=== PATIENT | male | born 1960 | race Caucasian/White ===

== ENCOUNTER 2016-11-29 06:37 | Observation (INO) | payer BC, OTHER ==
[2016-11-29] MEDS ORDERED: ASPIRIN CHEW 81 MG TABLET ONE (06:57)
[2016-11-29] MEDS ORDERED: ASPIRIN CHEW 81 MG TABLET PO STA (06:57)
[2016-11-29] MEDS ORDERED: MORPHINE 2 MG/ML SYRINGE IVP STA (07:15)
[2016-11-29] MEDS ORDERED: ONDANSETRON 4 MG/2 ML VIAL IVP STA (07:15)
[2016-11-29] MEDS ORDERED: ONDANSETRON 4 MG/2 ML VIAL ONE (07:16)
[2016-11-29] MEDS ORDERED: MORPHINE 2 MG/ML SYRINGE ONE (07:17)
[2016-11-29] MEDS ORDERED: ACETAMINOPHEN 325 MG TABLET PO STA (09:11)
[2016-11-29] MEDS ORDERED: oxyCODONE 5 MG TABLET PO STA (09:11)
[2016-11-29] MEDS ORDERED: SODIUM CHLORIDE FLUSH 0.9% 10 ML SYRINGE IVP PRN (09:28)
[2016-11-29] MEDS ORDERED: NITROGLYCERIN SL 0.4 MG TABLET SL PRN (09:33)
[2016-11-29] MEDS ORDERED: ACETAMINOPHEN 325 MG TABLET PO ONE (09:45)
[2016-11-29] MEDS ORDERED: oxyCODONE 5 MG TABLET ONE (09:45)
[2016-11-29] MEDS ORDERED: IOPAMIDOL-300 100 ML VIAL IVP ONE (09:51)
[2016-11-29] MEDS ORDERED: SODIUM CHLORIDE FLUSH 0.9% 10 ML SYRINGE IVP SCH (14:00)
[2016-11-29] MEDS ORDERED: ATORVASTATIN 40 MG TABLET PO SCH (21:00)
[2016-11-30] MEDS ORDERED: POLYETHYLENE GLYCOL 3350 17 GM PACKET PO SCH (09:00)
== END 2016-11-29 17:15 | disposition home or self-care (01) ==
DX: R07.89 Other chest pain (principal); R51 Headache; I10 Essential (primary) hypertension; E11.9 Type 2 diabetes mellitus without complications; E78.5 Hyperlipidemia, unspecified; R06.83 Snoring; E66.9 Obesity, unspecified; Z87.891 Personal history of nicotine dependence; Z82.49 Family history of ischemic heart disease and other diseases of the circulatory system; Z68.38 Body mass index [BMI] 38.0-38.9, adult
CPT/HCPCS: 36415; 70450; 70496; 70498; 71010; 71020; 80053; 80061; 83036; 83690; 84484; 85025; 93005; 93010; 96374; 96375; 99218; 99284; A9270; Q9967

== ENCOUNTER 2021-05-20 08:00 | Outpatient (CLI) | payer BC, OTHER ==
[2021-05-20 17:52] LABS: BASOPHILS # (AUTO) 0.1 10^3/uL (0.0-0.1); BASOPHILS % (AUTO) 0.7 %; EOSINOPHILS # (AUTO) 0.5 10^3/uL (0.0-0.7); EOSINOPHILS % (AUTO) 4.7 %; HCT - HEMATOCRIT 45.5 % (42.0-52.0); HGB - HEMOGLOBIN 14.6 g/dL (14.0-18.0); LYMPHOCYTES # (AUTO) 2.6 10^3/uL (1.5-3.5); LYMPHOCYTES % (AUTO) 26.9 %; MEAN CORPUSCULAR HEMOGLOBIN 29.7 pg (27.0-31.0); MEAN CORPUSCULAR HGB CONC 32.1 g/dL (32.0-36.0); MEAN CORPUSCULAR VOLUME 92.7 fL (80.0-94.0); MEAN PLATELET VOLUME 9.8 fL (7.4-11.4); MONOCYTES # (AUTO) 0.7 10^3/uL (0.0-1.0); MONOCYTES % (AUTO) 7.2 %; NEUTROPHILS # (AUTO) 5.6 10^3/uL (1.5-6.6); NEUTROPHILS % (AUTO) 58.9 %; PLT - PLATELET COUNT 213 10^3/uL (130-450); RED BLOOD COUNT 4.91 10^6/uL (4.70-6.10); RED CELL DISTRIBUTION WIDTH 13.3 % (12.0-15.0); WHITE BLOOD COUNT 9.6 x10^3/uL (4.8-10.8)
[2021-05-20 18:23] LABS: ALBUMIN 4.1 g/dL (3.2-5.5); ALBUMIN/GLOBULIN RATIO 1.4 (1.0-2.2); ALKALINE PHOSPHATASE 42 IU/L (42-121); ALT ALANINE AMINOTRANSFERASE 41 IU/L (10-60); AST ASPARTATE AMINOTRANSFERASE 23 IU/L (10-42); BILIRUBIN,TOTAL 0.5 mg/dL (0.2-1.0); BUN - BLOOD UREA NITROGEN 24 mg/dL (6-20); CALCIUM 9.6 mg/dL (8.5-10.3); CARBON DIOXIDE - CO2 26 mmol/L (21-32); CHLORIDE 105 mmol/L (101-111); CHOL/HDL RATIO 5.4 (<5.0); CHOLESTEROL 189 mg/dL; GFR - MDRD 75 (>89); GLUCOSE 187 mg/dL (70-100); HDL CHOLESTEROL 35 mg/dL; LDL CHOLESTEROL,CALCULATED 100 mg/dL; LDL/HDL RATIO 2.9 (<3.6); POTASSIUM 4.6 mmol/L (3.5-5.0); SODIUM 139 mmol/L (135-145); TOTAL PROTEIN 7.1 g/dL (6.7-8.2); TRIGLYCERIDES 271 mg/dL; VLDL CHOLESTEROL 54 mg/dL
[2021-05-20 18:31] LABS: CREATININE,URINE 80.5 mg/dL; MICROALBUM/CREATININE RATIO,UR 3.7 ug/mg (<30.0); MICROALBUMIN,URINE 0.3 mg/dL (0-300.0)
[2021-05-20 18:34] LABS: THYROID STIMULATING HORMONE 1.07 uIU/mL (0.34-5.60)
[2021-05-20 21:17] LABS: ESTIMATED AVERAGE GLUCOSE 186 mg/dL (70-100); HEMOGLOBIN A1c% 8.1 % (4.27-6.07)
== END 2021-05-20 23:59 | disposition home or self-care (01) ==
LOC: LAB.WCP 08:00
PROVIDERS: ATTEND Family Medicine
DX: E11.9 Type 2 diabetes mellitus without complications (principal)
CPT/HCPCS: 36415; 80053; 80061; 82043; 82570; 83036; 83721; 84443; 85025

== ENCOUNTER 2021-07-03 15:05 | Outpatient (CLI) | payer OTHER ==
--- NOTE | 2021-07-03 16:52 | XRAY Report ---
PROCEDURE: Hip w/Pelvis 2-3V RT INDICATIONS: LUMBAR RADICULOPATHY, RIGHT TECHNIQUE: AP pelvis with lateral view(s) of the bilateral hip(s). COMPARISON: None. FINDINGS: Bones: No fractures or dislocations. Pelvic ring appears intact. No suspicious bony lesions. Mild symmetric hip and sacroiliac joint degeneration bilaterally. Degenerative changes noted in the lower lumbar spine. Soft tissues: The visualized bowel gas pattern is normal. No suspicious soft tissue calcifications. 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 Reviewed by: Chelsie Alves MD on 07/03/2021 4:50 PM PDT Approved by: Chelsie Alves MD on 07/03/2021 4:50 PM PDT Station ID: [id number]
--- NOTE | 2021-07-03 17:03 | XRAY Report ---
PROCEDURE: Lumbar Spine 2 View INDICATIONS: LUMBAR RADICULOPATHY, RIGHT TECHNIQUE: 3 views of the lumbar spine were acquired. COMPARISON: Prior lumbar spine series dated 03/12/2015 FINDINGS: Bones: 5 [id number] vertebrae are present. Trace levocurvature centered at the L4 level. Multil evel disc degeneration, most notably and severe at the L2-L3 and L5-S1 levels. Mild L4-L5 and L5-S1 f acet joint arthropathy.. No vertebral body compression fractures. No suspicious bony lesions. Soft tissues: Overlying bowel gas pattern is normal. No suspicious soft tissue calcifications. IMPRESSION: Multilevel spondylosis. Reviewed by: ODETTE Patel on 07/03/2021 5:01 PM PDT Approved by: Velasquez Mcdowell on 07/03/2021 5:01 PM PDT Station ID: [id number]
== END 2021-07-03 15:06 | disposition home or self-care (01) ==
LOC: DI.N 15:05
PROVIDERS: ATTEND Nurse Practitioner
DX: M47.26 Other spondylosis with radiculopathy, lumbar region (principal); M47.28 Other spondylosis with radiculopathy, sacral and sacrococcygeal region; M16.0 Bilateral primary osteoarthritis of hip

== ENCOUNTER 2022-10-21 07:23 | Outpatient (CLI) | payer OTHER ==
[2022-10-21 12:52] LABS: ESTIMATED AVERAGE GLUCOSE 169 mg/dL (70-100); HEMOGLOBIN A1c% 7.5 % (4.27-6.07)
== END 2022-10-21 07:24 | disposition home or self-care (01) ==
LOC: LAB.N 07:23
PROVIDERS: ATTEND Nurse Practitioner
DX: E11.9 Type 2 diabetes mellitus without complications (principal); Z12.5 Encounter for screening for malignant neoplasm of prostate
CPT/HCPCS: 36415; 83036; 84153

== ENCOUNTER 2022-11-12 18:00 | Outpatient (CLI) | payer OTHER ==
[2022-11-12 21:25] LABS: CALCIUM 10.3 mg/dL (8.5-10.3); CREATININE 0.8 mg/dL (0.6-1.2); POTASSIUM 4.2 mmol/L (3.5-5.0)
== END 2022-11-12 23:59 | disposition home or self-care (01) ==
LOC: LAB.N 18:00
PROVIDERS: ATTEND Physician Assistant Medical
DX: U07.1 COVID-19 (principal)
CPT/HCPCS: 36415; 80048

== ENCOUNTER 2022-12-13 15:07 | Outpatient (CLI) | payer OTHER ==
[2022-12-13 15:26] VITALS: BP 140/88
== END 2022-12-13 15:08 | disposition home or self-care (01) ==
LOC: MAC.MOP 15:07
PROVIDERS: ATTEND Nurse Practitioner
DX: R00.2 Palpitations (principal)
CPT/HCPCS: 93246

== ENCOUNTER 2022-12-21 07:45 | Emergency (ER) | payer OTHER ==
[2022-12-21] MEDS ORDERED: LIDOCAINE 1%-EPI 1:100000 10 ML MDV SUBQ STA (07:59)
--- NOTE | 2022-12-21 08:04 | ED Physician Documentation ---
History of Present Illness - Stated complaint Stated Complaint: GLF/HEAD LAC - Chief complaint Chief Complaint: Laceration - Additonal information Additional information: Patient 62-year-old male presenting to the emergency department with chief complaint ground-level fall and scalp laceration. This morning was sitting at on a roller chair and it slipped out from underneath him striking the back of his head. He denies loss of consciousness but does report takes daily aspirin. Endorses for posterior scalp laceration and states that he applied pressure immediately upon injury with hemostasis acquired at home. Unknown last tetanus. Currently states he has a significant headache but denies any neck pain, blurred vision, double vision, back, chest or extremity pain. Review of Systems Constitutional: denies: Fever Eyes: denies: Loss of vision Ears: denies: Loss of hearing Nose: denies: Rhinorrhea / runny nose Throat: denies: Dental pain / toothache Cardiac: denies: Chest pain / pressure Respiratory: denies: Dyspnea GI: denies: Abdominal Pain : denies: Dysuria PD PAST MEDICAL HISTORY - Past Medical History Cardiovascular: Hypertension, High cholesterol - Past Surgical History Past Surgical History: Yes HEENT: Tonsil/Adenoidectomy - Present Medications Home Medications: Ambulatory Orders Medication Instructions Recorded Confirmed Aspirin 81 mg PO DAILY 11/29/16 12/21/22 Blood Sugar Diagnostic [Glucometer 1 each MC DAILY #60 strip 11/29/16 12/21/22 Strips] Blood-Glucose Meter [Glucometer] 1 each MC DAILY #1 each 11/29/16 12/21/22 lisinopriL [Lisinopril] 10 mg PO DAILY 11/29/16 12/21/22 Metformin HCl [Metformin ER 1,500 mg PO DAILY 12/21/22 12/21/22 Gastric] Rosuvastatin Calcium [Crestor] 10 mg PO HS 12/21/22 12/21/22 - Allergies Allergies/Adverse Reactions: Allergies Allergy/AdvReac Type Severity Reaction Status Date / Time bee pollen Allergy Anaphylaxis Verified 12/21/22 07:51 - Social History Does the pt smoke?: No Smoking Status: Former smoker Does the pt drink ETOH?: Yes Does the pt have substance abuse?: No - Immunizations Immunizations are current?: Yes PD ED PE NORMAL - Vitals Vital signs reviewed: Yes (Systolic blood pressure 170, diastolic blood pressure 98.) - General General: Alert and oriented X 3, No acute distress, Well developed/nourished - HEENT HEENT: Atraumatic, PERRL, EOMI, Other (5 cm curvilinear laceration on the posterior occiput.) - Neck Neck: Supple, no meningeal sign, C-Spine cleared by NEXUS criteria - Cardiac Cardiac: RRR, No murmur - Respiratory Respiratory: No respiratory distress - Abdomen Abdomen: Normal bowel sounds - Male Male : Deferred - Rectal Rectal: Deferred - Neuro Neuro: Alert and oriented X 3, electromatic typist 2-12 intact, No motor deficit, No sensory deficit, Normal speech Results - Vitals Vitals: Vital Signs - 24 hr 12/21/22 12/21/22 12/21/22 07:51 09:58 11:58 Temperature 36.9 C 36.5 C Heart Rate 72 82 73 Respiratory 18 20 18 Rate Blood Pressure 170/98 H 131/81 H 145/87 H O2 Saturation 97 94 96 12/21/22 12/21/22 12:37 16:00 Temperature 36.5 C Heart Rate 79 80 Respiratory 15 16 Rate Blood Pressure 144/91 H 130/88 H O2 Saturation 95 98 Oxygen O2 Source Room air - Labs Labs: Laboratory Tests 12/21/22 12/21/22 12/21/22 09:01 09:01 09:01 WBC 12.8 H RBC 4.75 Hgb 14.1 Hct 43.4 MCV 91.4 MCH 29.7 MCHC 32.5 RDW 12.9 Plt Count 215 MPV 9.1 Neut # (Auto) 8.9 H Lymph # (Auto) 2.5 [place] # (Auto) 1.0 Eos # (Auto) 0.3 Baso # (Auto) 0.1 Absolute Nucleated RBC 0.00 Nucleated RBC % 0.0 PT 11.4 INR 1.0 Sodium 136 Potassium 4.3 Chloride 104 Carbon Dioxide 25 Anion Gap 7.0 BUN 27 H Creatinine 0.9 Estimated GFR (MDRD) 85 L Glucose 208 H Calcium 9.7 Total Bilirubin 0.5 AST 25 ALT 42 Alkaline Phosphatase 40 L Total Protein 7.3 Albumin 4.1 Globulin 3.2 Albumin/Globulin Ratio 1.3 Lipase 74 H SARS-CoV-2 (PCR) 12/21/22 09:15 WBC RBC Hgb Hct MCV MCH MCHC RDW Plt Count MPV Neut # (Auto) Lymph # (Auto) [place] # (Auto) Eos # (Auto) Baso # (Auto) Absolute Nucleated RBC Nucleated RBC % PT INR Sodium Potassium Chloride Carbon Dioxide Anion Gap BUN Creatinine Estimated GFR (MDRD) Glucose Calcium Total Bilirubin AST ALT Alkaline Phosphatase Total Protein Albumin Globulin Albumin/Globulin Ratio Lipase SARS-CoV-2 (PCR) NOT DETECTED Procedures - Laceration (location) Scalp Posterior Length in cm: 5 Wound type: Curved Anesthesia: Lidocaine 1% with epi, Volume - enter ml (10) Skin layer closure: Sutures - enter # (13) PD Medical Decision Making - ED course Complexity details: reviewed results, re-evaluated patient, d/w patient, d/w family, d/w makeup sales consultant ED course: Patient is 62-year-old male presenting to the emergency department after fall with laceration to his posterior occiput. Afebrile, hemodynamically stable on arrival to the emergency department. No reported loss of consciousness but patient does take an antiplatelet agent, daily aspirin. His wound was cleaned and repaired as outlined in procedure note above. His CT scan did demonstrate what appeared to be a right intraparenchymal punctate bleed. Care was discussed directly with the neurosurgical team at [facility] who recommended repeat our imaging at approximately 6 hours. This was unchanged.He was also given a single dose of IV Cardizem for blood pressure control in order to maintain systolic blood pressures less than 160. He was monitored carefully in the emergency department with no worsening symptoms. At this time will discharge for follow-up with primary care as needed. Clear return precautions given. - Consults Consults: Consulted (name) (Dr. Prajapati, Neurosurgery [facility]) - Critical Care Time(min): 31 Time Includes: Direct patient care, Reassess patient, Document care, Coordinate care, Medical consult, See progress note Data interpretation: See progress note Departure - Departure Disposition: 01 Home, Self Care Clinical Impression: Traumatic intraparenchymal hemorrhage, Scalp laceration Instructions: ED Laceration Scalp Stitch Or Stap Comments: Thank you for allowing us to care for you today at [facility]. Thank you so much for your patience with that this is today. The repeat head CT did not show any increase in bleed or other associated injury. He did receive a total of 13 stitches to the laceration on the back of your head. These will need to be removed in 7 to 10 days. Gentle rinsing of this area is fine but please do not scrub or submerge this area. I recommend twice daily application of a topical antibiotic ointment such as bacitracin or N eosporin. If it anytime you develop new or worsening symptoms such as persistent intractable headache, blurred vision, double vision or periods of confusion please return to the emergency department. Discharge Date/Time: 12/21/22 16:06
[2022-12-21] MEDS: TETANUS/DIPHTHERIA/PERTUSSIS 0.5 ML SYRINGE IM ONE (08:10)
[2022-12-21] MEDS: LIDOCAINE 1%-EPI 1:100000 20 ML MDV SUBQ ONE (08:11)
[2022-12-21] MEDS: BACITRACIN ZINC OINT 1 PACKET TOP STA (08:50)
--- NOTE | 2022-12-21 08:57 | CT Report ---
PROCEDURE: HEAD WO INDICATIONS: Head trauma TECHNIQUE: Noncontrast 4.5 mm thick angled axial sections acquired from the foramen magnum to the vertex. For r adiation dose reduction, the following was used: automated exposure control, adjustment of mA and/or kV according to patient size. COMPARISON: None. FINDINGS: Image quality: Excellent. CSF spaces: Basal cisterns are patent. No extra-axial fluid collections. Ventricles are normal in size and shape. Brain: No midline shift. Patchy areas of hyperdensity are noted in the right frontal lobe as well as questionable focal hyperdensities in the lateral aspect of the left and right frontal lobes. No midl ine shift. Peacock-white matter interface is normal. Left vertebral artery separately calcified, progre ssive compared to prior exam, although notably calcified in 2017. Skull and face: Calvarium and visualized facial bones are intact, without suspicious lesions. Sinuses: Visualized sinuses and mastoids are clear. IMPRESSION: Patchy hyperdensities as above most consistent with hemorrhage suspected to be subarachn oid versus intraparenchymal contusion, as some are too small to definitively characterize. No intrave ntricular hemorrhage. The above findings were discussed with Dr. Kamara on 12/21/22 at 8:51am. Reviewed by: Melanie Michael MD on 12/21/2022 8:56 AM PDT Approved by: Melanie Michael MD on 12/21/2022 8:56 AM PDT Station ID: [id number]
[2022-12-21 09:07] LABS: BASOPHILS # (AUTO) 0.1 10^3/uL (0.0-0.1); BASOPHILS % (AUTO) 0.5 %; EOSINOPHILS # (AUTO) 0.3 10^3/uL (0.0-0.7); HCT - HEMATOCRIT 43.4 % (42.0-52.0); HGB - HEMOGLOBIN 14.1 g/dL (14.0-18.0); LYMPHOCYTES # (AUTO) 2.5 10^3/uL (1.5-3.5); LYMPHOCYTES % (AUTO) 19.6 %; MEAN CORPUSCULAR HEMOGLOBIN 29.7 pg (27.0-31.0); MEAN CORPUSCULAR HGB CONC 32.5 g/dL (32.0-36.0); MEAN CORPUSCULAR VOLUME 91.4 fL (80.0-94.0); MEAN PLATELET VOLUME 9.1 fL (7.4-11.4); MONOCYTES % (AUTO) 7.9 %; NEUTROPHILS # (AUTO) 8.9 10^3/uL (1.5-6.6); PLT - PLATELET COUNT 215 10^3/uL (130-450); RED BLOOD COUNT 4.75 10^6/uL (4.70-6.10); RED CELL DISTRIBUTION WIDTH 12.9 % (12.0-15.0); WHITE BLOOD COUNT 12.8 x10^3/uL (4.8-10.8)
[2022-12-21 09:21] LABS: ALBUMIN 4.1 g/dL (3.2-5.5); ALBUMIN/GLOBULIN RATIO 1.3 (1.0-2.2); BILIRUBIN,TOTAL 0.5 mg/dL (0.2-1.0); CALCIUM 9.7 mg/dL (8.5-10.3); CREATININE 0.9 mg/dL (0.6-1.2); POTASSIUM 4.3 mmol/L (3.5-5.0); TOTAL PROTEIN 7.3 g/dL (6.7-8.2)
[2022-12-21 09:27] LABS: PT - PROTHROMBIN TIME 11.4 secs (9.9-12.6)
[2022-12-21] MEDS: diltiaZEM INJ 5 MG/ML VIAL IVP STA (09:58)
--- NOTE | 2022-12-21 15:45 | CT Report ---
PROCEDURE: HEAD WO INDICATIONS: Interval check Intraparenchymal bleed TECHNIQUE: Noncontrast 4.5 mm thick angled axial sections acquired from the foramen magnum to the vertex. For r adiation dose reduction, the following was used: automated exposure control, adjustment of mA and/or kV according to patient size. COMPARISON: CT head 12/21/2022 FINDINGS: Image quality: Excellent. CSF spaces: Basal cisterns are patent. No extra-axial fluid collections. Ventricles are normal in size and shape. Brain: No midline shift. Previously identified right frontal lobe hyperdensity is unchanged. Faint a reas of hyperdensity in the lateral aspect of both the left and right frontal lobes are minimally les s prominent. Peacock-white matter interface is normal. Skull and face: Calvarium and visualized facial bones are intact, without suspicious lesions. Sinuses: Visualized sinuses demonstrate minimal ethmoid and maxillary sinus mucosal thickening. IMPRESSION: Unchanged appearance of patchy hyperdensities in the right frontal lobe as previously noted suspected to be subarachnoid versus intraparenchymal contusion. Previous left and right frontal lateral patchy hyperdensities are less well visualized. Reviewed by: Melanie Michael MD on 12/21/2022 3:44 PM PDT Approved by: Melanie Michael MD on 12/21/2022 3:44 PM PDT Station ID: [id number]
[2022-12-21 16:00] VITALS: BP 130/88
== END 2022-12-21 16:06 | disposition home or self-care (01) ==
LOC: EDUNIT# → ED 07:45
DX: S06.2X0A Diffuse traumatic brain injury without loss of consciousness, initial encounter (principal); S01.01XA Laceration without foreign body of scalp, initial encounter; W07.XXXA Fall from chair, initial encounter; I10 Essential (primary) hypertension; E78.00 Pure hypercholesterolemia, unspecified; Z20.822 Contact with and (suspected) exposure to COVID-19
CPT/HCPCS: 12002; 36415; 70450; 80053; 83690; 85025; 85610; 87635; 90471; 90715; 96374; 99284; 99291; A9270

== ENCOUNTER 2023-01-10 10:30 | Outpatient (CLI) | payer OTHER | END 2023-01-10 10:31 | disposition home or self-care (01) | LOC: MAC.INF 10:30 | PROVIDERS: ATTEND Nurse Practitioner | DX: R00.2 Palpitations (principal); I49.8 Other specified cardiac arrhythmias; I49.1 Atrial premature depolarization; I49.3 Ventricular premature depolarization | CPT/HCPCS: 93248 ==

== ENCOUNTER 2023-04-06 08:32 | Outpatient (CLI) | payer MEDICARE, OTHER ==
[2023-04-06 12:07] LABS: BASOPHILS # (AUTO) 0.1 10^3/uL (0.0-0.1); BASOPHILS % (AUTO) 0.7 %; EOSINOPHILS # (AUTO) 0.4 10^3/uL (0.0-0.7); EOSINOPHILS % (AUTO) 3.3 %; HCT - HEMATOCRIT 45.8 % (42.0-52.0); HGB - HEMOGLOBIN 14.8 g/dL (14.0-18.0); LYMPHOCYTES # (AUTO) 3.2 10^3/uL (1.5-3.5); LYMPHOCYTES % (AUTO) 30.2 %; MEAN CORPUSCULAR HEMOGLOBIN 29.8 pg (27.0-31.0); MEAN CORPUSCULAR HGB CONC 32.3 g/dL (32.0-36.0); MEAN CORPUSCULAR VOLUME 92.2 fL (80.0-94.0); MEAN PLATELET VOLUME 9.5 fL (7.4-11.4); MONOCYTES # (AUTO) 0.8 10^3/uL (0.0-1.0); MONOCYTES % (AUTO) 7.1 %; NEUTROPHILS # (AUTO) 6.2 10^3/uL (1.5-6.6); NEUTROPHILS % (AUTO) 57.9 %; PLT - PLATELET COUNT 219 10^3/uL (130-450); RED BLOOD COUNT 4.97 10^6/uL (4.70-6.10); WHITE BLOOD COUNT 10.7 x10^3/uL (4.8-10.8)
[2023-04-06 12:28] LABS: ALBUMIN/GLOBULIN RATIO 1.1 (1.0-2.2); ALKALINE PHOSPHATASE 41 IU/L (42-121); ALT ALANINE AMINOTRANSFERASE 43 IU/L (10-60); AST ASPARTATE AMINOTRANSFERASE 26 IU/L (10-42); BILIRUBIN,TOTAL 0.5 mg/dL (0.2-1.0); BUN - BLOOD UREA NITROGEN 26 mg/dL (6-20); CALCIUM 10.2 mg/dL (8.5-10.3); CARBON DIOXIDE - CO2 28 mmol/L (21-32); CHLORIDE 106 mmol/L (101-111); CHOL/HDL RATIO 4.2 (<5.0); CHOLESTEROL 143 mg/dL; GFR - MDRD 75 (>89); GLUCOSE 203 mg/dL (70-100); HDL CHOLESTEROL 34 mg/dL; LDL CHOLESTEROL,CALCULATED 57 mg/dL; LDL/HDL RATIO 1.7 (<3.6); POTASSIUM 4.8 mmol/L (3.5-5.0); SODIUM 139 mmol/L (135-145); TOTAL PROTEIN 7.6 g/dL (6.7-8.2); TRIGLYCERIDES 261 mg/dL; VLDL CHOLESTEROL 52 mg/dL
[2023-04-06 12:41] LABS: THYROID STIMULATING HORMONE 1.27 uIU/mL (0.34-5.60)
[2023-04-06 12:42] LABS: MICROALBUM/CREATININE RATIO,UR 6.2 ug/mg (<30.0); MICROALBUMIN,URINE 0.6 mg/dL (0-300.0)
[2023-04-06 12:52] LABS: ESTIMATED AVERAGE GLUCOSE 177 mg/dL (70-100); HEMOGLOBIN A1c% 7.8 % (4.27-6.07)
== END 2023-04-06 08:33 | disposition home or self-care (01) ==
LOC: LAB.N 08:32
PROVIDERS: ATTEND Nurse Practitioner
DX: I10 Essential (primary) hypertension (principal); E78.5 Hyperlipidemia, unspecified; E11.9 Type 2 diabetes mellitus without complications
CPT/HCPCS: 36415; 80053; 80061; 82043; 82570; 83036; 83721; 84443; 85025

== ENCOUNTER 2024-03-05 21:35 | Emergency (ER) | payer MEDICARE, OTHER ==
[2024-03-05] MEDS: SODIUM CHLORIDE 0.9% 1,000 ML IV STA (22:06)
[2024-03-05] MEDS: diltiaZEM INJ 5 MG/ML VIAL IVP STA (22:06)
[2024-03-05 22:09] LABS: BASOPHILS % (AUTO) 0.4 %; EOSINOPHILS # (AUTO) 0.3 10^3/uL (0.0-0.7); EOSINOPHILS % (AUTO) 2.4 %; HCT - HEMATOCRIT 44.1 % (42.0-52.0); HGB - HEMOGLOBIN 13.7 g/dL (14.0-18.0); LYMPHOCYTES # (AUTO) 3.1 10^3/uL (1.5-3.5); LYMPHOCYTES % (AUTO) 28.4 %; MEAN CORPUSCULAR HGB CONC 31.1 g/dL (32.0-36.0); MEAN PLATELET VOLUME 9.1 fL (7.4-11.4); MONOCYTES # (AUTO) 0.8 10^3/uL (0.0-1.0); MONOCYTES % (AUTO) 7.4 %; NEUTROPHILS # (AUTO) 6.7 10^3/uL (1.5-6.6); NEUTROPHILS % (AUTO) 60.6 %; PLT - PLATELET COUNT 245 10^3/uL (130-450); RED CELL DISTRIBUTION WIDTH 13.4 % (12.0-15.0)
[2024-03-05 22:27] LABS: ALBUMIN 4.2 g/dL (3.2-5.5); ALBUMIN/GLOBULIN RATIO 1.6 (1.0-2.2); BILIRUBIN,TOTAL 0.3 mg/dL (0.2-1.0); CALCIUM 11.1 mg/dL (8.5-10.3); CREATININE 0.9 mg/dL (0.6-1.3); POTASSIUM 4.1 mmol/L (3.5-4.5); TOTAL PROTEIN 6.8 g/dL (6.4-8.9)
[2024-03-05] MEDS: METOPROLOL 5 MG/5 ML VIAL IVP STA (23:17)
[2024-03-05] MEDS: METOPROLOL TARTRATE 50 MG TABLET PO STA (23:17)
[2024-03-05] MEDS ORDERED: METOPROLOL 5 MG/5 ML VIAL IVP ONE (23:19)
[2024-03-06] MEDS: MIDAZOLAM 10 MG/2 ML VIAL IVP STA (01:24)
[2024-03-06 02:41] VITALS: O2SAT 97
--- NOTE | 2024-03-06 02:46 | ED Physician Documentation ---
History of Present Illness - Stated complaint Stated Complaint: HEART PALP - Chief complaint Chief Complaint: Cardiac - History obtained from History obtained from: Patient, Family - Additonal information Additional information: The pt comes to the ED for CC of palpitations. He has a history of episodes of this from time to time, and has even worn a Holter monitor, but they have never been able to capture an episode. Sx began at 1999, but pt did not tell his for some hours. The pt's is a retired nurse, and took the pt's pulse, and found it to be in the 150's. The pt denies CP, SOB, or lightheadedness. He is a diabetic and has high blood pressure. PD PAST MEDICAL HISTORY - Past Medical History Past Medical History: Yes Cardiovascular: Hypertension, High cholesterol Respiratory: None Neuro: None Endocrine/Autoimmune: Type 2 diabetes GI: None : None HEENT: None Psych: None Musculoskeletal: None Derm: None - Past Surgical History Past Surgical History: Yes HEENT: Tonsil/Adenoidectomy - Present Medications Home Medications: Ambulatory Orders Medication Instructions Recorded Confirmed Aspirin 81 mg PO DAILY 11/29/16 03/05/24 Metformin HCl [Metformin ER 1,500 mg PO DAILY 12/21/22 03/05/24 Gastric] Lisinopril [Zestril] 20 mg PO DAILY 03/05/24 03/05/24 Rosuvastatin Calcium 20 mg PO QPM 03/05/24 03/05/24 Apixaban [Eliquis] 5 mg PO BID #120 tab 03/06/24 diltiaZEM CD [Cardizem Cd] 240 mg PO DAILY #60 cap 03/06/24 - Allergies Allergies/Adverse Reactions: Allergies Allergy/AdvReac Type Severity Reaction Status Date / Time bee pollen Allergy Anaphylaxis Verified 03/05/24 21:48 - Social History Does the pt smoke?: No Smoking Status: Never smoker Does the pt drink ETOH?: Yes Does the pt have substance abuse?: No - Immunizations Immunizations are current?: Yes Immunizations: TDAP >10years/unknown PD ED PE NORMAL - Vitals Vital signs reviewed: Yes - General General: Alert and oriented X 3, No acute distress, Well developed/nourished - HEENT HEENT: Atraumatic, EOMI, Moist mucous membranes - Neck Neck: Supple, no meningeal sign - Cardiac Cardiac: No murmur, Other (irregularly irregular rhythm, tachycardic rate.) - Respiratory Respiratory: No respiratory distress, Clear bilaterally - Abdomen Abdomen: Soft, Non tender, Non distended - Derm Derm: Normal color, Warm and dry, No rash - Extremities Extremities: No deformity, No edema, No calf tenderness / cord - Neuro Neuro: Other (Alert, grossly intact) - Psych Psych: Normal mood, Normal affect Results - Vitals Vitals: Oxygen O2 Source Room air - EKG (time done) 2 EKG releavant findings:: EKG personally interpreted by author of this note. Relevant findings are: Rate: Rate (enter#) (152) Rhythm: Atrial fibrillation [place]: Normal QRS: Normal Ischemia: Normal ST segments, Non specific changes Compare to prior EKG: Old EKG unavailable Computer interpretation: Agree with computer - Labs Labs: Laboratory Tests 03/05/24 03/05/24 03/05/24 22:04 22:04 22:04 WBC 11.0 H RBC 4.90 Hgb 13.7 L Hct 44.1 MCV 90.0 MCH 28.0 MCHC 31.1 L RDW 13.4 Plt Count 245 MPV 9.1 Neut # (Auto) 6.7 H Lymph # (Auto) 3.1 [place] # (Auto) 0.8 Eos # (Auto) 0.3 Baso # (Auto) 0.0 Absolute Nucleated RBC 0.00 Nucleated RBC % 0.0 Sodium 135 Potassium 4.1 Chloride 101 Carbon Dioxide 26 Anion Gap 8.0 BUN 21 H Creatinine 0.9 Estimated GFR (MDRD) 84 L Glucose 298 H Calcium 11.1 H Total Bilirubin 0.3 AST 15 ALT 31 Alkaline Phosphatase 56 Total Protein 6.8 Albumin 4.2 Globulin 2.6 Albumin/Globulin Ratio 1.6 Lipase 90 H TSH 1.93 Procedures - Procedural sedation Sedation prep: Informed consent, Time out completed, PE performed, ASA 2 - mild disease Sedation Medications: versed Mallampati classification: I Patient status during sedation: Unresponsive (except to shock, groaned.) Sedation recovery: Recovered uneventfully, Back to baseline Time in sedation (Minutes): 10 - Cardioversion - Major 1 Time of attempt: 01:26 Indication: Tachyarrhythmia Risks, benefits, alternatives explained to: Pt Prep: IV, O2, cardiac monitor, Pulse ox, Airway equip CS via: Pads Sync: Biphasic, 200j Post cardioversion rhythm: NSR (for a few seconds, then returned to a. fib with RVR) Performed by: RADHA SKINNER 2 Time of attempt: :28 Indication: Tachyarrhythmia Risks, benefits, alternatives explained to: Pt Prep: IV, O2, cardiac monitor, Pulse ox, Airway equip CS via: Pads Sync: Biphasic, 200j Post cardioversion rhythm: NSR (for a few seconds, then returned to a. fib with RVR) Performed by: RADHA LOCKHART Medical Decision Making - ED course Complexity details: reviewed results, re-evaluated patient, considered differential, d/w patient, d/w family ED course: The pt was treated with IV Cardizem and metoprolol, as well as PO metoprolol, with rate response, but no conversion. After a few hours in the ED without spontaneous conversion, I did discuss cardioversion with the pt and his . The onset of sx was very clear, per patient, and he is certain he was not in a. fib before. We had a very definite discussion about the possibility of stroke as a result of cardioversion, and that although I think the likelihood of this is low, given the pt's description of onset of sx, I cannot guarantee that the pt was not in a. fib with an asymptomatic, normal rate before. As such, the alternative would be to have rate control as the main objective and start the pt on meds for this and anticoagulation as an outpatient. The pt and discussed the options and ultimately, they decided they would like to pursue cardioversion. The pt was consented, and RT did come down to the ED for the sedation. We ended up delivering 2 shocks at 200J, and while the pt had several beats of NSR each time, he ended up going back into a. fib with mild RVR each time. The stated she would like to stop the cardioversion efforts, which I feel is reasonable, since the pt has been able to achieve, but not maintain, NSR. The pt was observed for nearly 2 hours in the ED after this. He returned to full baseline, and remained in a. fib with a rate in the 90's-low 100's throughout that time. He did have one episode about 45 min after cardioversion attempts of an approximately 6-second pause, followed by sinus bradycardia with a HR of about 30 bpm for several beats. The pt then returned to a. fib and had no further such episodes during his monitoring period. He displayed no stroke sx. He was ultimately stable for d/c home, and pt and both felt comfortable with this. I have prescribed Cardizem LA and Eliquis as an outpatient. We have discussed the need for the pt to see his PCP as soon as possible and to follow up with cardiology, as well. We have discussed the usual indications for return. - Critical Care Time(min): 40 Comments: Critical care time was necessary, due high probability of imminent decline and , secondary to persistent tachydysrhythmia in the form of atrial fibrillation with RVR. Time Includes: Direct patient care, Review records, Reassess patient, Document care, Coordinate care, Family consult for tx dec, See progress note Data interpretation: Labs, Pulse ox, Prior EKG, Cardiac output, See progress note Departure - Departure Disposition: 01 Home, Self Care Clinical Impression: Paroxysmal atrial fibrillation with rapid ventricular response Condition: Stable Instructions: ED Afib Prescriptions: diltiaZEM CD [Cardizem Cd] 240 mg PO DAILY #60 cap Apixaban [Eliquis] 5 mg PO BID #120 tab Comments: Unfortunately, despite multiple doses of medication and to high intensity shocks, we were not able to get your heart to stay out of atrial fibrillation. After each shock, your heart rhythm did briefly return to normal, but then the A-fib took over again. At this point, you will need to follow-up with cardiology to determine the next best step. For now, we will have you take medication to keep your heart rate controlled and in a blood thinner to keep a clot from forming in the upper chambers of your heart. You will need to call to make an appointment with your primary provider as soon as possible and let her know that you were seen in the emergency department for atrial fibrillation. She will need to send a referral to cardiology for you to be seen by them. If you develop heart rate that is sustained in the 130s or higher, or if you develop chest pain or shortness of breath, please return immediately to the emergency department. The prescriptions for your medications have been electronically transmitted to the [facility] pharmacy in [place]. Please pick them up tomorrow morning and begin taking them immediately. Forms: PCP List Discharge Date/Time: 03/06/24 03:40
[2024-03-06] MEDS: APIXABAN 5 MG TABLET PO STA (03:33)
[2024-03-06 04:04] VITALS: BP 120/71
== END 2024-03-06 03:40 | disposition home or self-care (01) ==
LOC: ED 21:35
DX: I48.0 Paroxysmal atrial fibrillation (principal)
CPT/HCPCS: 36415; 80053; 83690; 84443; 85025; 92960; 93005; 96374; 96375; 99152; 99291; A9270; J2250

== ENCOUNTER 2024-05-30 08:40 | Outpatient (CLI) | payer MEDICARE, OTHER ==
[2024-05-30 11:56] LABS: BASOPHILS # (AUTO) 0.1 10^3/uL (0.0-0.1); BASOPHILS % (AUTO) 0.8 %; EOSINOPHILS # (AUTO) 0.3 10^3/uL (0.0-0.7); EOSINOPHILS % (AUTO) 4.2 %; HCT - HEMATOCRIT 42.3 % (42.0-52.0); HGB - HEMOGLOBIN 13.8 g/dL (14.0-18.0); LYMPHOCYTES # (AUTO) 2.7 10^3/uL (1.5-3.5); LYMPHOCYTES % (AUTO) 36.6 %; MEAN CORPUSCULAR HEMOGLOBIN 28.9 pg (27.0-31.0); MEAN CORPUSCULAR HGB CONC 32.6 g/dL (32.0-36.0); MEAN CORPUSCULAR VOLUME 88.5 fL (80.0-94.0); MEAN PLATELET VOLUME 9.3 fL (7.4-11.4); MONOCYTES # (AUTO) 0.6 10^3/uL (0.0-1.0); MONOCYTES % (AUTO) 8.2 %; NEUTROPHILS # (AUTO) 3.7 10^3/uL (1.5-6.6); NEUTROPHILS % (AUTO) 49.3 %; PLT - PLATELET COUNT 243 10^3/uL (130-450); RED BLOOD COUNT 4.78 10^6/uL (4.70-6.10); RED CELL DISTRIBUTION WIDTH 13.4 % (12.0-15.0); WHITE BLOOD COUNT 7.5 x10^3/uL (4.8-10.8)
[2024-05-30 12:08] LABS: ALBUMIN 4.1 g/dL (3.2-5.5); ALBUMIN/GLOBULIN RATIO 1.2 (1.0-2.2); ALKALINE PHOSPHATASE 52 IU/L (42-121); ALT ALANINE AMINOTRANSFERASE 30 IU/L (10-60); AST ASPARTATE AMINOTRANSFERASE 21 IU/L (10-42); BILIRUBIN,TOTAL 0.5 mg/dL (0.2-1.0); BUN - BLOOD UREA NITROGEN 20 mg/dL (6-20); CALCIUM 10.4 mg/dL (8.5-10.3); CARBON DIOXIDE - CO2 28 mmol/L (21-32); CHLORIDE 102 mmol/L (101-111); CHOL/HDL RATIO 3.1 (<5.0); CHOLESTEROL 119 mg/dL; CREATININE 0.9 mg/dL (0.6-1.3); GFR - MDRD 84 (>89); GLUCOSE 199 mg/dL (74-104); HDL CHOLESTEROL 39 mg/dL; LDL CHOLESTEROL,CALCULATED 36 mg/dL; LDL/HDL RATIO 0.9 (<3.6); POTASSIUM 4.3 mmol/L (3.5-4.5); SODIUM 135 mmol/L (135-145); TOTAL PROTEIN 7.4 g/dL (6.4-8.9); TRIGLYCERIDES 219 mg/dL; VLDL CHOLESTEROL 44 mg/dL
[2024-05-30 12:24] LABS: ESTIMATED AVERAGE GLUCOSE 174 mg/dL (70-100); HEMOGLOBIN A1c% 7.7 % (4.27-6.07)
== END 2024-05-30 08:41 | disposition home or self-care (01) ==
LOC: LAB.N 08:40
PROVIDERS: ATTEND Nurse Practitioner Family
DX: I10 Essential (primary) hypertension (principal); E78.5 Hyperlipidemia, unspecified; E11.9 Type 2 diabetes mellitus without complications; E66.9 Obesity, unspecified
CPT/HCPCS: 36415; 80053; 80061; 83036; 83721; 85025